=== PATIENT | female | born 1975 | race Caucasian/White ===

== ENCOUNTER 2018-12-21 10:00 | Emergency (ER) | payer OTHER ==
[~2018-12-21] VITALS: Ht 157.5 cm; Wt 58.1 kg
[~2018-12-21 10:00] MED LIST: HYDROXYCHLOROQ200 MG PO; PREDNISONE2.5 MG PO
[2018-12-21] MEDS ORDERED: KETO10TA2 PO (12:20)
[2018-12-21] MEDS ORDERED: ORPHENADRINE C100 MG PO (12:20)
[2018-12-21] MEDS ORDERED: CYCLOBENZAPRINE10 MG PO (12:20)
[2018-12-21] MEDS ORDERED: DOXYCYCLINE HY100 MG PO (12:20)
== END 2018-12-21 12:58 | disposition home or self-care (01) ==
LOC: ER 10:00
DX: S80.812A Abrasion, left lower leg, initial encounter (principal); W55.03XA Scratched by cat, initial encounter; Y93.89 Activity, other specified; Y92.89 Other specified places as the place of occurrence of the external cause; Y99.8 Other external cause status; M54.2 Cervicalgia